=== PATIENT | male | born 1945 | race Caucasian/White ===

== ENCOUNTER 2016-06-30 11:31 | Day surgery (SDC) | payer OTHER, MEDICARE ==
[~2016-06-30] VITALS: Ht 177.8 cm; Wt 97.8 kg
[2016-06-30] VITALS (12 sets, daily range): BP systolic 78–126; BP diastolic 41–59; PULSE 73–92; RESP 18–45
[2016-06-30] MEDS ORDERED: CEFAZOLIN 1 GM/50 ML (PMX) 0 ML IVPB ONE (15:03)
[2016-06-30] MEDS ORDERED: FENTAnyl 50 MCG/ML VIAL ONE (15:31)
[2016-06-30] MEDS ORDERED: ETOMIDATE 20 MG INJ ONE (15:31)
[2016-06-30] MEDS ORDERED: EPHEDrine SULFATE 50 MG/5 ML SYG ONE (15:37)
[2016-06-30] MEDS ORDERED: PHENYLephrine (100 MCG/ML) 5ML SYG ONE (15:46)
[2016-06-30] MEDS ORDERED: CIPROFLOXACIN 400MG/D5W 200 ML ONE (15:49)
--- NOTE | 2016-06-30 18:43 | GILP ---
DATE OF PROCEDURE: 06/30/2016 PERCUTANEOUS ENDOSCOPIC GASTROSTOMY INDICATION: A 71-year-old male undergoing this procedure for poor oral nutrition and dysphagia. He had a G-tube which had come out spontaneously, and the radiologist could not put in a new G-tube, s o the patient is undergoing this procedure. The patient is undergoing endoscopic placement of G-tub e. The risk of the procedure, related and unrelated complications, anesthetic risks, alternatives discu ssed, and informed consent was obtained. DESCRIPTION OF PROCEDURE: The patient was brought to the GI lab, sedated by Dr. Correa. After obtai nelly sedation, scope was passed with much ease into esophagus. The internal stoma identified which was completely obliterated. There were 2 dolly seen surrounding the stoma, so I do not know wheth er it was a surgical G-tube or radiological G-tube. Attempt was made to pass the guidewire through the external stoma which was also completely obliterated. Since no air was leaking out through the internal stoma, it was definitely closed, so by transillumination and digital palpation technique, w e chose a different site. The site was sterilized with chlorhexidine solution, 2% Xylocaine instill ed, and small incision was made. Through that incision, trocar and stylus passed into the stomach. Stylet was removed through the hollow tip of the catheter. Insertion wire was passed, and the enti re procedure was completed by modified Ponsky technique. The patient was rescoped and the position of the internal bumper confirmed. External bumper secured. Tolerated the procedure very well. IMPRESSION: Successful placement of G-tube done. PLAN: Resume feeding in a.m. Until then, the patient will be n.p.o. and abdominal binder all the t maría. Dictated By: JARRELL KELLY/ANGELA Conf#: [id number] DID#: [id number] CC: DANIEL LUGO DO;*EndCC*
== END 2016-06-30 17:40 | disposition home or self-care (01) ==
LOC: GIL 11:31
PROVIDERS: ATTEND Internal Medicine Gastroenterology
DX: R13.10 Dysphagia, unspecified (principal); I10 Essential (primary) hypertension; E11.9 Type 2 diabetes mellitus without complications; I25.10 Atherosclerotic heart disease of native coronary artery without angina pectoris
CPT/HCPCS: 43246; J0744; J2370; J0690; J3010

== ENCOUNTER 2016-07-02 08:05 | Emergency (ER) | payer MEDICARE, OTHER ==
[~2016-07-02] VITALS: Ht 180.3 cm; Wt 118.2 kg
[2016-07-02 08:28] VITALS: Ht 180.3 cm; Wt 118.2 kg
[2016-07-02] MEDS ORDERED: SODIUM CHLORIDE 0.9% 1L BAG IV* STA (08:28)
[2016-07-02] MEDS ORDERED: NORepinephrine 8MG/250 ML (PMX 250 ML IV STA ×2 (08:28→20:45)
[2016-07-02] MEDS ORDERED: VANCOMYCIN 1 GM (PMX) 250 ML IVPB ONE (08:30)
[2016-07-02] MEDS ORDERED: LEVOFLOXACIN 750MG/D5W (PMX) 150 ML IVPB ONE (08:30)
--- NOTE | 2016-07-02 08:41 | ERA ---
ER Documentation Chief Complaint Date/Time DATE: 07/02/16 TIME: 08:41 Chief Complaint TRANSFER FROM [facility] 3RD FLOOR DUE TO HYPOTENSION HPI Patient is unable to provide any history due to cognitive impairment and clinical condition. History is obtained entirely from transferring nurses and review of previous records. 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 Patient was in his usual state of health until 04/17/2016 when he presented to the [facility] with shortness of breath. He was found to be septic secondary to community-acquired pneumonia. Required intubation, mechanical ventilation and subsequent tracheostomy was performed. Patient was stable until this morning when he had an episode of vomiting and since then has been hypotensive with systolic blood pressures in the 50s-60s. PMD, Dr. Gutierrez was notified and requested the patient be transferred to the intensive care unit but no beds are available. ROS All systems reviewed and are negative except as per history of present illness. Medications Home Meds Reported Medications Metoclopramide HCl (Metoclopramide HCl) 10 Mg/2 Ml Syringe, 10 MG IJ Q6H Y for PRN 07/02/16 Dextrose (Glucose) 15 Gm/60 Ml Liquid, 15 GM GTB Q15MIN 07/02/16 Glucagon HCl (Glucagon HCl) 1 Mg Vial, 1 MG IJ Q15MIN Y for PRN, VIAL 07/02/16 Belt-3 Fatty Acids/Fish Oil (Fish Oil 1,000 mg Capsule) 1 Each Capsule, 1 EACH GTB BID, CAP 07/02/16 Famotidine* (Famotidine*) 20 Mg Tablet, 20 MG GTB BID, #60 TAB 07/02/16 Docusate Sodium* (Docusate Sodium*) 100 Mg Capsule, 100 MG GTB BID, #60 CAP 07/02/16 Ciprofloxacin Hcl* (Ciprofloxacin Hcl*) 500 Mg Tablet, 500 MG GTB BID, #14 TAB 07/02/16 Clonidine Hcl* (Clonidine Hcl*) 0.1 Mg Tab, 0.2 MG PO Q4H, TAB 07/02/16 Cholecalciferol* (Vitamin D3*) 1,000 Unit Tablet, 2000 UNIT GTB DAILY, TAB 07/02/16 Carvedilol* (Carvedilol*) 3.125 Mg Tablet, 3.125 MG GTB BID, #60 TAB 07/02/16 Famotidine/Ca Carb/Mag Hydrox (TUMS DUAL ACTION TABLET CHEW) 1 Each Tab.chew, 1000 EACH GTB Q4H Y for PRN, TAB.CHEW 07/02/16 Atorvastatin* (Atorvastatin*) 40 Mg Tablet, 40 MG GTB DAILY, #30 TAB 07/02/16 Aspirin* (Aspirin* Chew) 81 Mg Tab.chew, 81 MG GTB DAILY, TAB.CHEW 07/02/16 Ascorbic Acid* (Vitamin C*) 500 Mg Capsule.sa, 500 MG GTB BID, CAP 07/02/16 Amiodarone Hcl* (Amiodarone Hcl*) 200 Mg Tablet, 200 MG GTB DAILY, #30 TAB 07/02/16 Ipratropium-Albuterol (Ipratropium-Albuterol) 0.5-3 Mg/3 Ml Ampul.neb, 3 ML INHALATION Q6, #30 VIAL 07/02/16 Acetaminophen* (Acetaminophen* Susp) 325 Mg/10.15 Ml Solution, 650 MG GTB Q4H Y for PAIN OR TEMP ABOVE 38C, ML 07/02/16 Trazodone Hcl* (Trazodone Hcl*) 50 Mg Tablet, 25 MG GTB QHS, #30 TAB 07/02/16 Tolterodine Tartrate* (Tolterodine Tartrate*) 2 Mg Tablet, 2 MG GTB QHS, #60 TAB 07/02/16 Tamsulosin Hcl* (Tamsulosin Hcl*) 0.4 Mg Cap.er.24h, 0.4 MG GTB DAILY, CAP 07/02/16 Sucralfate* (Carafate*) 1 Gm/10 Ml Susp, 1 GM GTB AC MEALS AND BEDTIME, EA 07/02/16 Quetiapine Fumarate* (Quetiapine Fumarate*) 25 Mg Tablet, 12.5 MG PO BID, TAB 07/02/16 Polyethylene Glycol* (Miralax*) 17 Gm Powd.pack, 17 GM GTB DAILY Y for PRN, #30 PACKET 07/02/16 Ondansetron Hcl* (Ondansetron Hcl* Inj) 4 Mg/2 Ml Vial, 4 MG IV Q6H, VIAL 07/02/16 Nystatin (Nystatin) 100,000 Unit/1 Ml Oral.susp, 5 ML PO TID, #60 ML 07/02/16 Magnesium Hydroxide* (Milk Of Magnesia*) 400 Mg/5 Ml Oral.susp, 30 ML PO QHS, ML 07/02/16 Lorazepam* (Lorazepam*) 0.5 Mg Tablet, 0.5 MG PO Q3H Y for ANXIETY, TAB 07/02/16 Lactulose* (Lactulose*) 20 Gm/30 Ml Solution, 20 GM GTB DAILY Y for PRN, ML 07/02/16 Lactobacillus Acidophilus* (Lactinex*) 1 Tab Chew, 1 TAB GTB TID, TAB 07/02/16 Insulin Glargine* (Lantus*) 100 Unit/Ml Soln, 8 UNIT SC QAM, #1 VIAL 07/02/16 Insulin Aspart* (Novolog Insulin Pen*) 100 Unit/Ml Soln, 0 SC .SLIDING SCALE AC , EA 0-120=0, 121-150=0, 151-200=1 UNITS, 201-250=2 UNITS, 251-300=3 UNITS, 301-350=4 UNITS, 351-400=5 UNITS CALL PROVIDER IF BS ABOVE 400=6 UNITS [id number]. 07/02/16 Hydromorphone Hcl* (Dilaudid* Inj) 1 Mg/Ml Soln, 0.25 MG IV Q2H Y for PAIN, AMP 07/02/16 Hydrocodone/Acetaminophen ([place] 5-325 Tablet) 1 Each Tablet, 2 EACH GTB Q4H Y for PRN, TAB 07/02/16 Allergies Allergies: Coded Allergies: cephalexin (Unverified Allergy, Unknown, 07/02/16) gentamicin (Unverified Allergy, Unknown, 07/02/16) PMhx/Soc Reviewed in chart. As per HPI. History of Surgery: Yes (IVC FILTER, RENAL TRANSPLANT, GTUBE) Anesthesia Reaction: No Hx Neurological Disorder: No Hx Respiratory Disorders: Yes (RESP FAILURE) Hx Cardiac Disorders: Yes (HTN, CAD, HX AFIB) Hx Psychiatric Problems: No Hx Miscellaneous Medical Probl: Yes (BUE DVT.WEEPING/EDEMA OF BUE/BLE) Hx Alcohol Use: No Hx Substance Use: No Hx Tobacco Use: No Smoking Status: Never smoker FmHx No stroke or cancer. Not relevant to presenting complaint Physical Exam Vitals Vital Signs Date Time Temp Pulse Resp B/P Pulse Ox O2 Delivery O2 Flow Rate FiO2 07/02/16 13:29 97.0 70 24 78/17 100 07/02/16 12:29 97.0 72 24 101/56 100 07/02/16 11:29 97.0 74 24 96/43 100 07/02/16 10:35 77 24 100 60 07/02/16 10:29 96.4 76 27 74/37 100 07/02/16 09:30 96.4 74 27 66/40 100 07/02/16 08:30 84 27 100 100 07/02/16 08:28 96.4 87 18 55/15 100 Physical Exam Const: Elderly, ill-appearing in severe distress. Head: Atraumatic Eyes: Normal Conjunctiva ENT: Normal External Ears, Nose and Mouth. Mucous membranes are dry Neck: Nontender. No meningismus. JVD. Tracheostomy site clean without erythema, induration or drainage Resp: Decreased breath sounds bilaterally with crackles throughout both lung edwards. No wheezing. Cardio: Regular rate and rhythm, no murmurs Abd: Soft, obese, distended, nontender. No rebound or guarding. PEG site clean without erythema, induration or drainage. Skin: Sacral decubitus with wound VAC in place. No rash. Back: No midline or flank tenderness Ext: 4+ edema, hyperpigmentation and erythema of the right upper extremity. 2+ edema of the left upper extremity. 2+ pitting edema of the lower extremities extending up to the scrotum. Neur: Unresponsive. Physical exam is truncated due to the constraints imposed by the patient's clinical condition Result Diagram: 07/02/1692907/02/1630 Results 24 hrs Laboratory Tests Test 07/02/16 08:28 07/02/16 08:30 07/02/16 09:30 07/02/16 10:00 Blood Gas Specimen Source Blood arterial Arterial Blood Date Drawn 07/02/2016 9:04:54 AM Arterial Blood pH (Temp corrected) 7.296 Arterial Blood pCO2 (Temp correct) 33.4mmhg Arterial Blood pO2 (Temp corrected) 335.5mmHG Arterial Blood HCO3 15.9mmol/L Arterial Blood Base Excess -9.7mmol/L Arterial Blood Oxygen Saturation 99.2mmHG Misael Test ACCEPTAB Arterial Blood Gas Puncture Site Left Radial Arterial Blood Carboxyhemoglobin 0.3% Arterial Blood Methemoglobin 0.6% Blood Gas A-a O2 Differential 344.1mmHg Oxyhemoglobin Percent 98.3% Total Hemoglobin 8.2g/dl Blood Gas Temperature 37.0C Blood Gas Respiration Rate 24.0 Blood Gas Actual Respiration Rate 24 Blood Gas Modality VENT - AC FiO2 100.0% Blood Gas Tidal Volume 500.0mL Blood Gas Low PEEP Setting 0cmH2O Blood Gas Critical Value Read Back Blood Gas Notified Whom Maggie Blood Gas Notified Time 07/02/2016 9:12:34 AM Lactic Acid Level 4.8mmol/L 8.7mmol/L White Blood Count 3.210^3/ul Red Blood Count 2.6810^6/ul Hemoglobin 7.6g/dl Hematocrit 26.7% Mean Corpuscular Volume 99.6fl Mean Corpuscular Hemoglobin 28.4pg Mean Corpuscular Hemoglobin Concent 28.5g/dl Red Cell Distribution Width 20.1% Platelet Count 10^3/UL Mean Platelet Volume 11.8fl Neutrophils % 59.0% Band Neutrophils % 16.0% Lymphocytes % 12.0% Reactive Lymphocytes % 2.0% Monocytes % 3.0% Eosinophils % % Metamyelocytes % 8.0% Nucleated Red Blood Cells % 8.0/100WBC Neutrophils # 1.910^3/ul Lymphocytes # 0.410^3/ul Monocytes # 0.110^3/ul Eosinophils # 10^3/ul Metamyelocytes # 0.3 Platelet Estimate Clumped Platelets MANY Hypochromasia FEW Sodium Level 143mmol/L Potassium Level 3.9mmol/L Chloride Level 114mmol/L Carbon Dioxide Level 20mmol/L Anion Gap 13 Blood Urea Nitrogen 23mg/dl Creatinine 2.39mg/dl Glucose Level 89mg/dl Calcium Level 7.3mg/dl Total Bilirubin 0.1mg/dl Direct Bilirubin 0.00mg/dl Indirect Bilirubin 0.1mg/dl Aspartate Amino Transf (AST/SGOT) 77IU/L Alanine Aminotransferase (ALT/SGPT) 41IU/L Alkaline Phosphatase 155IU/L Troponin I 0.030ng/ml Total Protein 3.9g/dl Albumin 1.8g/dl Globulin 2.10g/dl Albumin/Globulin Ratio 0.85 Current Medications Medications (Trade) Dose Ordered Sig/Moni Route PRN Reason Start Time Stop Time Status Last Admin Dose Admin Sodium Chloride 3660 ml 3,660 ml BOLUS OVER 2 HOURS STAT IV* 07/02/16 08:28 07/02/16 08:32 DC 07/02/16 08:39 Norepinephrine 250 ml @ 7.5 mls/hr ONCE STAT IV 07/02/16 08:28 07/03/16 17:47 07/02/16 08:28 Vancomycin HCl 250 ml @ 125 mls/hr ONCE ONCE IVPB 07/02/16 08:30 07/02/16 10:29 DC 07/02/16 12:00 Levofloxacin/ Dextrose (Levaquin 750 Mg/ D5W 150 ml (Pmx)) 150 ml @ 100 mls/hr ONCE ONCE IVPB 07/02/16 08:30 07/02/16 09:59 DC 07/02/16 09:45 Lidocaine (Xylocaine 1% (Mpf)) 5 ml ONCE ONCE SC 07/02/16 09:30 07/02/16 09:31 DC Hydrocortisone (Solu-Cortef) 125 mg ONCE ONCE IV 07/02/16 09:30 07/02/16 09:31 DC 07/02/16 10:21 Acetaminophen (Tylenol Liquid) 650 mg Q4H PRN GTB PAIN OR TEMP ABOVE 38C 07/02/16 13:00 Amiodarone HCl (Cordarone) 200 mg DAILY GTB 07/03/16 09:00 UNV Ascorbic Acid (Vitamin C) 500 mg BID GTB 07/02/16 21:00 UNV Aspirin (Aspirin) 81 mg DAILY GTB 07/03/16 09:00 UNV Atorvastatin Calcium (Lipitor) 40 mg DAILY GTB 07/03/16 09:00 UNV Carvedilol (Coreg) 3.125 mg BID GTB 07/02/16 21:00 UNV Cholecalciferol (Vitamin D) 2,000 unit DAILY GTB 07/03/16 09:00 UNV Insulin Glargine (Lantus) 8 unit QAM SC 07/03/16 09:00 UNV Albuterol/ Ipratropium (Duoneb) 3 ml Q6 NEB 07/02/16 18:00 UNV Lactobacillus Acidoph/Bulgaricus (Floranex) 1 tab TID GTB 07/02/16 13:00 UNV Magnesium Hydroxide (Milk Of Mag) 30 ml QHS PO 07/02/16 21:00 Nystatin (Nystatin Susp) 500,000 units TID PO 07/02/16 13:00 UNV Ondansetron HCl (Zofran Inj) 4 mg Q6H IV 07/02/16 13:00 Polyethylene Glycol (Miralax) 17 gm DAILY PRN GTB PRN 07/02/16 13:00 Sucralfate (Carafate Susp) 1 gm AC MEALS AND BEDTIME GTB 07/02/16 17:30 UNV Tamsulosin HCl (Flomax) 0.4 mg DAILY PO 07/03/16 09:00 UNV Tolterodine Tartrate (Detrol) 2 mg QHS GTB 07/02/16 21:00 UNV Trazodone HCl (Desyrel) 25 mg QHS GTB 07/02/16 21:00 UNV Miscellaneous Information 15 gm Q15MIN GTB 07/02/16 13:00 UNV Miscellaneous Information 1,000 each Q4H PRN GTB PRN 07/02/16 13:00 UNV Miscellaneous Information 1 mg Q15MIN PRN IJ PRN 07/02/16 13:00 UNV Miscellaneous Information 10 mg Q6H PRN IJ PRN 07/02/16 13:00 UNV Miscellaneous Information 1 each BID GTB 07/02/16 21:00 UNV Vancomycin HCl VANCOMYCIN PER PHARMACY PER PROTOCOL XX 07/02/16 13:00 UNV Levofloxacin/ Dextrose (Levaquin 750 Mg/ D5W 150 ml (Pmx)) 150 ml @ 100 mls/hr DAILY ONCE IVPB 07/03/16 09:00 07/03/16 10:29 UNV Hydrocortisone 100 mg 100 mg Q8 IV 07/02/16 14:00 UNV Sodium Chloride (NS) 1,000 ml @ 100 mls/hr Q10H IV 07/02/16 13:00 EKG: TIME: 08:59. Sinus rhythm with occasional premature atrial complexes. Left anterior hemiblock. Nonspecific ST-T wave changes. No acute ST segment elevation or depression. EP Interpretation: Abnormal EKG. IMAGING: PROCEDURE: XR Chest. CLINICAL INDICATION: Possible sepsis. TECHNIQUE: PA and Lateral views of the chest were obtained. COMPARISON: Chest x-ray 06/09/2016 08:00 a.m. FINDINGS: The soft tissues are normal. There are degenerative osteophytes in the thoracic spine. Tracheostomy tube is identified at T3. The left ventricle is enlarged. The cardiomediastinal silhouette and hilar structures are normal. The pulmonary vasculature is increased. The right diaphragm is elevated. There are vascular calcifications and ectasia of the thoracic aorta. There is atelectasis in the right lower lobe. There are vague infiltrates in the left lower lobe which are unchanged. The small right pleural effusion is suspected. The left costophrenic angle is normal. IMPRESSION: 1. Cardiomegaly with mild pulmonary venous obstruction. 2. Right lower lobe atelectasis with elevation of the right diaphragm. 3. A left lower lobe infiltrate which may be the result of pneumonia or asymmetric pulmonary edema. 4. Satisfactory positioning of the tracheostomy tube at T3-4. 5. Interval removal of the central venous catheter entering from a right internal jugular approach with no evidence of a pneumothorax. 6. Bilateral apical pleural scarring. 7. Spondylosis of the thoracic spine. RPTAT:AAJJ Physician Hal Date Time Electronically viewed and signed by Physician Hal on 07/02/2016 09:28 JM/ Procedures/MDM DOCUMENTS REVIEWED: ED nurse, prior records from [facility] and [facility] ED and hospital records MEDICAL DECISION MAKIN-year-old male with a history of hypertension, end- stage renal disease status post renal allograft, DVT status post IVC filter, pulmonary embolism, [place]ain[place] cell tumor, Alport syndrome, hypothyroidism, coronary artery disease status post PCI, adrenal insufficiency, upper GI bleeding, sacral decubitus, pneumonia, respiratory failure status post tracheostomy, vent dependent brought to the ED on his hospital bed from [facility] for evaluation of hypotension. Patient presents with septic shock likely due to aspiration pneumonia although he has multiple other potential sources including sacral decubitus. Patient's infectious symptoms have not stabilized and continues to be hypotensive despite IV fluids and Solu- Cortef 125 mg IV, requiring vasopressors. Patient is at risk of rapid decompensation. The patient will be admitted to the intensive care unit for hydration, antibiotic therapy, vasopressor support and infectious source control. Severe Sepsis criteria: Infectious source: Pneumonia End organ damage indicated by: Hypotension Lactate > 2.0 mmol/L Hypotension (SBP < 90 or >40 mmHG drop or MAP < 65) Acute Resp Failure (sat < 92% w/o oxygen) Ice Hockey Coach > 2.0 INR > 1.5 Plt < 100 Bili > 2 Sepsis Management: Time of recognition of severe sepsis/septic shock: 09:00 Within 3 hours of recognition: Blood cultures x 2 before broad-spectrum antibiotics: Yes 30 ml/kg NS bolus Completed Initial lactate 4.8 Repeat lactate 8.7 Septic Shock Assessment: Any lactic acid > 4.0 yes Persistent hypotension (SBP < 90 or 40 mmHg drop, MAP < 65) despite 30 mL/kg IV fluid bolus yes Volume Re-assessment for Septic Shock (post 30 ml/kg bolus @ 12:29 time): Temp 97, BP 101/56, HR 72, RR 24, Pox 100 Heart regular rate & rhythm Lungs diminished at the bases with rales Skin Warm & dry Cap Refill less than 2 seconds Peripheral pulses radially present Persistent Hypotension Treatment: Comfort care no Hypotension caused by: pt. baseline, med-induced, erroneous value, condition other than infection no Refusal by patient/decision maker for: Chest compressions or heroic interventions Central line left upper extremity PICC line Vasopressor started Levophed I considered further perfusion assessment with CVP measurement, SCVO2, bedside ultrasound volume assessment, passive leg raise, trial of further fluid bolus and proceeded with additional fluid bolus. Accepting Care Team Current data and ongoing care discussed. Time: 08:50 Admitting Physician: Brenda Critical Care Time: 40 minutes Treatments/Evaluations: Close monitoring and treatment of unstable vital signs, cardiorespiratory, and neurologic status, while maintaining tight balance of fluid, respiratory, and cardiac interventions. This includes the administration of emergency fluid management while maintaining close respiratory support as well as the provision of immediate and broad-spectrum antibiotic therapy, while performing a simultaneous assessment for possible sources in order to direct targeted therapy. This time includes discussing the case with the patient and the patient's family. This time also includes the consideration for invasive and chemical support to prevent cardiopulmonary collapse. This time does not include all procedures stated elsewhere in this record. This time also includes reviewing old records, labs and radiological studies. This time includes examining and re-examining the patient. Additionally, this time also includes arranging care with admitting and consulting physicians. Counseled daughter who is at the bedside and son who is a house furnishings supervisor in [place] via telephone regarding diagnosis, diagnostic results, prognosis and plan for admission. CALLS/CONSULTS: Time 08:45, Dr. Oneill, Recommends admission to ICU. PATIENT CARE TRANSITIONED: Time: 08:45, Dr. Gutierrez. Departure Diagnosis: Primary Impression: Septic shock Additional Impressions: Pneumonia Qualified Code: J69.0 - Aspiration pneumonia, unspecified aspiration pneumonia type, unspecified laterality, unspecified part of lung Acute on chronic renal failure History of renal transplant Hypotension Qualified Code: I95.9 - Hypotension, unspecified hypotension type Adrenal insufficiency Condition: Critical OTTO SMITH MD Jul 02, 2016 08:41
[2016-07-02 09:12] LABS: AADO2 Arterial 344.1 mmHg (7.0-24.0); Allen Test ACCEPTAB; Arterial Base Excess -9.7 mmol/L (-3.0-3); Arterial COHb 0.3 % (0.0-3.0); Arterial Fraction of Oxyhgb 98.3 % (93.0-99.0); Arterial HCO3 15.9 mmol/L (22.0-26.0); Arterial MetHb 0.6 % (0.0-1.5); Arterial Total Hemglobin 8.2 g/dl (12.0-18.0); Blood Gas Low PEEP Setting 0 cmH2O; MODE VENT - AC
--- NOTE | 2016-07-02 09:28 | RADRPT ---
PROCEDURE: XR Chest. CLINICAL INDICATION: Possible sepsis. TECHNIQUE: PA and Lateral views of the chest were obtained. COMPARISON: Chest x-ray 06/09/2016 08:00 a.m. FINDINGS: The soft tissues are normal. There are degenerative osteophytes in the thoracic spine. Tracheostom y tube is identified at T3. The left ventricle is enlarged. The cardiomediastinal silhouette and h ilar structures are normal. The pulmonary vasculature is increased. The right diaphragm is elevated . There are vascular calcifications and ectasia of the thoracic aorta. There is atelectasis in the r ight lower lobe. There are vague infiltrates in the left lower lobe which are unchanged. The small right pleural effusion is suspected. The left costophrenic angle is normal. IMPRESSION: 1. Cardiomegaly with mild pulmonary venous obstruction. 2. Right lower lobe atelectasis with elevation of the right diaphragm. 3. A left lower lobe infiltrate which may be the result of pneumonia or asymmetric pulmonary edema. 4. Satisfactory positioning of the tracheostomy tube at T3-4. 5. Interval removal of the central venous catheter entering from a right internal jugular approach with no evidence of a pneumothorax. 6. Bilateral apical pleural scarring. 7. Spondylosis of the thoracic spine. RPTAT:AAJJ Physician Hal Date Time Electronically viewed and signed by Physician Hal on 07/02/2016 09:28 SOCORRO/
[2016-07-02] MEDS ORDERED: LIDOCAINE 1% (MPF) 5 ML VIAL SC ONE ×2 (09:30→15:00)
[2016-07-02] MEDS ORDERED: HYDROCORTISONE 250 MG INJ IV ONE (09:30)
[2016-07-02 09:44] LABS: ADD SCAN DIFF NO
[2016-07-02 09:48] LABS: ABNORMAL IP MESSAGE 1; HEMATOCRIT 26.7 % (42.0-52.0); HEMOGLOBIN 7.6 g/dl (14.0-18.0); MEAN CORPUSCULAR HEMOGLOBIN 28.4 pg (29.0-33.0); MEAN CORPUSCULAR HGB CONC 28.5 g/dl (32.0-37.0); MEAN CORPUSCULAR VOLUME 99.6 fl (82.0-101.0); MEAN PLATELET VOLUME 11.8 fl (7.4-10.4); RED BLOOD COUNT 2.68 10^6/ul (4.70-6.10); RED CELL DISTRIBUTION WIDTH 20.1 % (11.5-14.5); WHITE BLOOD COUNT 3.2 10^3/ul (4.8-10.8)
[2016-07-02 10:07] LABS: ALBUMIN 1.8 g/dl (3.3-4.9); ALBUMIN/GLOBULIN RATIO 0.85; BILIRUBIN,INDIRECT 0.1 mg/dl (0-1.1); BILIRUBIN,TOTAL 0.1 mg/dl (0.2-1.3); CALCIUM 7.3 mg/dl (8.4-10.2); CREATININE 2.39 mg/dl (0.61-1.24); POTASSIUM 3.9 mmol/L (3.5-5.1); TOTAL PROTEIN 3.9 g/dl (6.1-8.1)
[2016-07-02 10:18] LABS: TROPONIN-I 0.03 ng/ml (0.00-0.12)
[2016-07-02] MEDS ORDERED: HYDR-906 GTB (10:40)
[2016-07-02] MEDS ORDERED: DIL1I IV (10:42)
[2016-07-02] MEDS ORDERED: NOVO3I SC (10:48)
[2016-07-02] MEDS ORDERED: LANT3I SC (10:49)
[2016-07-02] MEDS ORDERED: LACTINEX GTB (10:50)
[2016-07-02] MEDS ORDERED: LACT20SO2 GTB (10:51)
[2016-07-02] MEDS ORDERED: LORA0.5T PO (10:52)
[2016-07-02] MEDS ORDERED: MAGN400O4 PO (10:52)
[2016-07-02] MEDS ORDERED: NYST1000 PO (10:56)
[2016-07-02] MEDS ORDERED: ONDA4VIA2 IV (10:57)
[2016-07-02] MEDS ORDERED: POLY17PO6 GTB (10:57)
[2016-07-02] MEDS ORDERED: QUET25TA33 PO (10:58)
[2016-07-02] MEDS ORDERED: CARAS GTB (10:59)
[2016-07-02] MEDS ORDERED: TAMS0.4C2 GTB (11:00)
[2016-07-02] MEDS ORDERED: TOLT2TAB5 GTB (11:01)
[2016-07-02] MEDS ORDERED: TRAZ50TA18 GTB (11:01)
[2016-07-02] MEDS ORDERED: ACET325S GTB (11:03)
[2016-07-02] MEDS ORDERED: IPRA3AMP INHALATION (11:04)
[2016-07-02] MEDS ORDERED: AMIO200T2 GTB (11:05)
[2016-07-02] MEDS ORDERED: ASCO500C7 GTB (11:06)
[2016-07-02] MEDS ORDERED: ASPI81TA3 GTB (11:06)
[2016-07-02] MEDS ORDERED: ATOR40TA68 GTB (11:07)
[2016-07-02] MEDS ORDERED: FAMO1TAB3 GTB (11:20)
[2016-07-02] MEDS ORDERED: CARV3.1260 GTB (11:20)
[2016-07-02] MEDS ORDERED: CHOL100062 GTB (11:21)
[2016-07-02] MEDS ORDERED: CLON-379 PO (11:24)
[2016-07-02] MEDS ORDERED: CIPR500T4 GTB (11:30)
[2016-07-02] MEDS ORDERED: DOCU-159 GTB (11:31)
[2016-07-02] MEDS ORDERED: FAMO20TA18 GTB (11:31)
[2016-07-02] MEDS ORDERED: OMEG-135 GTB (11:32)
[2016-07-02] MEDS ORDERED: GLUC1VIA6 IJ (11:33)
[2016-07-02] MEDS ORDERED: DEXT15LI43 GTB (11:35)
[2016-07-02] MEDS ORDERED: METO10DI2 IJ (11:39)
[2016-07-02 13:00] LABS: LYMPHOCYTES # 0.4 10^3/ul (0.8-2.9); MONOCYTE # 0.1 10^3/ul (0.3-0.9); NEUTROPHIL # 1.9 10^3/ul (1.6-7.5)
[2016-07-02] MEDS ORDERED: [UNRECOGNIZED DRUG - OTHER] GTB SCH (13:00)
[2016-07-02] MEDS: ONDANSETRON 4 MG INJ IV SCH ×2 (13:00→19:28)
[2016-07-02] MEDS ORDERED: POLYETHYLENE GLYCOL 17 GM PACKET GTB PRN (13:00)
[2016-07-02] MEDS ORDERED: ACETAMINOPHEN 650MG/20.3ML CUP GTB PRN (13:00)
[2016-07-02] MEDS ORDERED: SOD CHLORIDE 0.9% 1,000 ML IV SCH (13:00)
[2016-07-02] MEDS ORDERED: FAMOTIDINE GTB PRN (13:00)
[2016-07-02] MEDS ORDERED: MAG HYDROX GTB PRN (13:00)
[2016-07-02] MEDS ORDERED: NYSTATIN SUSP 100000 UNITS/ML 60 ML BTL PO SCH (13:00)
[2016-07-02] MEDS ORDERED: [UNRECOGNIZED DRUG - OTHER] GTB PRN (13:00)
[2016-07-02] MEDS ORDERED: VANCOMYCIN IV PER PHARMACY XX SCH (13:00)
[2016-07-02] MEDS ORDERED: DEXTROSE 15 GM GTB SCH (13:00)
[2016-07-02] MEDS ORDERED: GLUCAGON HCL 1 MG IJ PRN (13:00)
[2016-07-02] MEDS ORDERED: CA CARB GTB PRN (13:00)
[2016-07-02 13:02] LABS: HYPOCHROMASIA FEW
[2016-07-02 13:03] LABS: PLATELETS CLUMPS MANY
[2016-07-02] MEDS ORDERED: HYDROCORTISONE 100 MG INJ IV SCH (14:00)
--- NOTE | 2016-07-02 14:28 | HP ---
DATE OF ADMISSION: 07/02/2016 CHIEF COMPLAINT: Septic shock. HISTORY OF PRESENT ILLNESS: This is a 71-year-old male with past medical history of end-stage renal disease status post renal transplant in 1984 secondary to Alport syndrome, history of hypertension, history of deep venous thrombosis, status post inferior vena cava filter in 2013, history of PE, hi story of skin cancer, history of Opal cell tumor, status post right axillary surgery, radiation, h istory of hypothyroidism, history of coronary artery disease, status post PCI, history of adrenal in sufficiency, history of spinal stenosis who initially presented to [facility] from assisted living facility on 04/17/2016 with shortness of breath. The patient at that [facility] was found to be septic due to community-acquired pneumonia. The patient was admitted to intensiv e care unit. He had a long hospital course on sustained ventilation. The patient was eventually tr ached and pegged and transferred to [facility] for continued care. While at [place], the patient was being seen by under baster and infectious disease. The patient had a clinical decl ine in his condition as he started to develop acute kidney injury. The patient early in the morning then had an episode of emesis with apparent aspiration. The patient then became hypotensive with m inimal response. The patient was given IV hydration and transferred to intensive care unit. In the intensive care unit, the patient was placed on broad spectrum antibiotics and was placed on pressor support and has been given aggressive IV hydration. There have been no reports of hemoptysis, heme temesis, or hematochezia. PAST MEDICAL HISTORY: As stated above, history of hypertension, history of end-stage renal disease status post renal transplant, history of Alport syndrome, history of deep venous thrombosis, status post inferior vena cava filter, history of pulmonary embolus, history of skin cancer and history of [place] cell tumors, history of hypothyroidism disease, coronary disease, history of adrenal insuffic iency. PAST SURGICAL HISTORY: Status post kidney transplant from donor status post PCI to [facility] post lumbar laminectomy. History of pituitary excision. SOCIAL HISTORY: Does not drink, smoke or do drugs. FAMILY HISTORY: Noncontributory. ALLERGIES: PATIENT IS ALLERGIC TO GENTAMICIN and KEFLEX. MEDICATIONS: Reviewed and reconciled. REVIEW OF SYSTEMS: Unable to do adequate review of systems as patient is altered. Pertinent positi ves obtained by reviewing medical records, speaking to hospital staff, stated in HPI, otherwise nega tive. PHYSICAL EXAMINATION: VITAL SIGNS: Blood pressure is currently 100/72, respiration is 24, temperature 98.6, heart rate is 77. HEENT: Head is normocephalic. Pupils are reactive to light. NECK: Supple. HEART: Tachycardic. LUNGS: Show diminished breath sounds, positive crackles, rhonchi. ABDOMEN: Soft, nontender to palpation. Positive PEG. EXTREMITIES: Positive for edema in upper and lower extremity, positive lymphedema in the right uppe r extremity. The patient has hyperpigmentation of lower extremities. DERMATOLOGIC: No obvious rashes. NEUROLOGIC: Limited exam as the patient is obtunded. LABORATORY DATA: Shows a white count 3.2, hemoglobin 7.6, hematocrit 36.7, platelet count 75. Sodi um 143, potassium ____, chloride 114, BUN 23, creatinine 2.39, lactic acid 8.7, calcium 7.3, total b ilirubin 0.1. A pH 7.2, pCO2 of 33. IMAGING STUDIES: Chest x-ray shows right lower lobe atelectasis left lower lobe infiltrate with pos sible pneumonia or asymmetric edema bilateral apical scarring, spondylosis. ASSESSMENT AND PLAN: This is a 71-year-old male who presents with: 1. Aseptic shock, underlying etiology is likely from aspiration pneumonia, pneumonitis. The patien t is currently on pressor support and is receiving IV fluids on broad spectrum antibiotics. 2. Check blood cultures, check urine cultures. Check procalcitonin level. Continue current antibi otic regimen will place an ID consult for Infectious Disease for evaluation. Will continue pressor support and IV fluids and monitor closely. 3. Oligoanuric acute kidney injury on top of chronic kidney disease with a previous baseline creati nine of 0.7 mg/dL. Etiology of acute kidney injury is likely secondary to acute tubular necrosis du e to sepsis, ischemic hypoperfusion/shock. The possibility of an acute rejection is less likely giv en the patient's clinical presentation; however, this will always need to be considered in the setti ng of renal transplant. Plan at this point is to check a UA with microanalysis. Will check urine e lectrolytes. We will check a stat renal ultrasound to rule out obstruction. Would continue treatin g underlying sepsis with IV antibiotics. Will continue pressor support, maintain MAP of 65. Contin ue IV hydration. Will monitor closely. There is no immediate need for renal replacement therapy at this time. 4. Metabolic acidosis, anion gap, etiology secondary to septic shock, lactic acidosis and acute kid kimberlee injury. The patient's pH 7.29, pCO2 of 33. At this point, we will continue to monitor. No nee d for bicarbonate therapy. 5. Ventilator dependent respiratory failure. Vent settings have been reviewed. ABG reviewed. Con tinue to monitor. Follow up with Pulmonary. 6. Anemia. Etiology is likely of chronic disease. Monitor H and H levels, transfuse PRBCs as need ed. 7. Dysphagia, suspect will hold tube feeding. 8. History of end-stage renal disease status post cadaveric renal transplant. The patient currentl y has acute kidney injury as stated above. The patient is on Sirolimus. Will check a level and adj ust dose as needed. 9. Right upper extremity lymphedema. Continue to monitor. 10. Dermatitis. Continue to monitor. 11. History of coronary artery disease status post PCI. Continue medical management. We will plac e a cardiology consultation for evaluation. 12. Acute encephalopathy. Etiology is likely toxic metabolic. Continue to monitor. 13. History of paroxysmal atrial fibrillation, currently in sinus rhythm. Continue current medical management. Continue amiodarone. 14. History of adrenal insufficiency as the patient is in shock, will give the patient stress hydro cortisone 100 mg IV q.8h. 15. Decubitus wound. Continue wound care. 16. Diabetes. Continue current insulin regimen. 17. Volume overload with noted lower extremity edema. The patient is currently in shock, will defe r any diuretic therapy and continue IV hydration. 18. Previous history of gastrointestinal bleed. Continue to monitor H and H levels closely. 19. History of deep venous thrombosis and pulmonary embolism. 20. Status post inferior vena cava filter. 21. History of Opal cell tumor. Please note, I discussed the case with the patient's family. The patient is a DNR. Dictated By: DANIEL PEPE/ANGELA Conf#: [id number] DID#: [id number]
[2016-07-02] MEDS ORDERED: GLUCOSE GEL 15 GRAM TUBE PO PRN ×2 (15:00)
[2016-07-02] MEDS ORDERED: GLUCAGON 1 MG INJ IM PRN (15:00)
[2016-07-02] MEDS ORDERED: DEXTROSE 50% 50 ML SYRINGE IV PRN ×2 (15:00)
[2016-07-02] MEDS ORDERED: DOPamine-D5W 1.6 MG/ML 250 ML IV SCH (15:00)
[2016-07-02] MEDS ORDERED: GLUCOSE GEL 15 GRAM TUBE BUCCAL PRN (15:00)
[2016-07-02] MEDS ORDERED: PHENYLephrine 20MG IN 250 ML 250 ML IV SCH (15:00)
[2016-07-02] MEDS ORDERED: METOCLOPRAMIDE 10 MG INJ IV PRN (15:30)
[2016-07-02] MEDS ORDERED: L ACIDOPHIL/B LACTIS/B LONGUM CAPSULE PO SCH (16:00)
--- NOTE | 2016-07-02 16:13 | RADRPT ---
PROCEDURE: XR Chest. CLINICAL INDICATION: Check PICC line catheter placement. TECHNIQUE: Single frontal view of the chest was obtained COMPARISON: Chest x-ray 06/09/2016. FINDINGS: The soft tissues are normal. There are degenerative osteophytes in the thoracic spine. There is a suboptimal inspiratory effort. The heart is enlarged. The cardiomediastinal silhouette and hilar s tructures are normal. The pulmonary vasculature is increased. There are vascular calcifications in the left sided aortic arch. There are bilateral worsening interstitial perihilar infiltrates. There is atelectasis in the right lower lobe adjacent to the diaphragm. There is a area of increased den sity projecting through the medial left heart border. A tracheostomy tube is well-positioned at T3. The costophrenic angles are poorly visualized. IMPRESSION: 1. The PICC line catheter is well positioned in the superior vena cava. 2. A central venous catheter entering from right internal jugular approach was removed over the int erval. 3. Cardiomegaly with bilateral mixed interstitial infiltrates and some more confluent alveolar infi ltrates in the upper lung edwards and right perihilar area. 4. Plate-like atelectasis in the right lower lobe with elevation of the right diaphragm. 5. Atherosclerotic vascular disease. 6. Rectangular shaped density projecting through the left heart border resulting in increased densi ty of unknown etiology. RPTAT:AAJJ Physician Hal Date Time Electronically viewed and signed by Ken Pennington Physician on 07/02/2016 16:12 SOCORRO/
[2016-07-02] MEDS ORDERED: ALBUMIN HUMAN 25% 100 ML IV SCH (16:30)
[2016-07-02] MEDS ORDERED: VANCOMYCIN 1 GM in NS 250 ML IVPB SCH (16:30)
[2016-07-02 16:34] LABS: INR 1.94; PROTIME 22.3 Sec (12.2-14.2); PT RATIO 1.7
[2016-07-02 16:36] LABS: ADD UMIC YES; URINE BLOOD (Dip) 1+ (NEGATIVE); URINE COLOR DK. YELLOW (YELLOW); URINE GLUCOSE (Dip) NEGATIVE (NEGATIVE); URINE KETONES (Dip) 15 (NEGATIVE); URINE LEUKOCYTE ESTERASE (Dip) 2+ (NEGATIVE); URINE NITRITE (Dip) POSITIVE (NEGATIVE); URINE TOTAL PROTEIN (Dip) 2+ (NEGATIVE); URINE UROBILINOGEN (Dip) 1.0 E.U./dL (0.1-1.0)
--- NOTE | 2016-07-02 16:43 | CONS ---
DATE OF ADMISSION: 07/02/2016 DATE OF CONSULTATION: 07/02/2016 PRIMARY PHYSICIAN: Dr. Gutierrez REASON FOR CONSULTATION: Respiratory failure and septic shock. HISTORY OF PRESENT ILLNESS: Briefly, this is a 71-year-old gentleman with multiple medical problems , most notably history of end-stage renal disease status post renal transplant in 1984 secondary to Alport's syndrome, history of hypertension, DVT, status post IVC filter placement, history of PE, hi story of [place] cell tumor, hypothyroidism, coronary artery disease status post PCI, adrenal insuffi ciency, and spinal stenosis who is status post a long hospitalization and sustained mechanical venti lation at an outside hospital, followed by eventual transfer to [facility] for [facility] of chronic vent-dependent respiratory failure. It appears that the patient has had worsening acute kidney injury and more recently earlier today was noted to have an acute episode of emesis wi th possible witnessed aspiration followed by hypotension and worsening hypoxemic respiratory failure , prompting transfer to [facility] while awaiting an ICU bed. PAST MEDICAL HISTORY: As noted above, also history of skin cancer. PAST SURGICAL HISTORY: Status post a cadaveric renal transplant in 1984, history of PCI to the RCA and history of lumbar thyroidectomy and pituitary excision. MEDICATIONS: Please see MAR. ALLERGIES: 1. GENTAMICIN. 2. KEFLEX. SOCIAL HISTORY: No tobacco, alcohol or illicit drug use. FAMILY HISTORY: Noncontributory. REVIEW OF SYSTEMS: Unable to obtain. PHYSICAL EXAMINATION: VITAL SIGNS: Currently blood pressure is 81/48 supported on pressors. Heart rate is 64, oxygen sat uration of 100% on 60% FIO2, temperature is 97.0. HEENT: Pupils are reactive to light. NECK: Supple. Tracheostomy site is clear. CARDIOVASCULAR: Regular rate and rhythm, S1 and S2. CHEST: Diminished breath sounds with some rhonchi heard bilaterally. ABDOMEN: Soft, nontender. PEG is in place. EXTREMITIES: Diffuse anasarca, particularly worse in the right upper extremity. LABORATORY DATA: WBC is 3.2, hemoglobin 7.6, platelets are for some reason not done due to being cl umped. ABG: pH is 7.30, pACO2 is 33, pO2 is 340, this is on 100%. Lactate is most recently 8.7. BUN is 23, creatinine is 2.39. IMAGING: Chest x-ray shows evidence of cardiomegaly, some left lower lobe subtle airspace disease a nd a left PICC line that appears in good place. IMPRESSION: 1. Septic shock, possibly due to an aspiration versus healthcare-associated pneumonia. Also cathet er-related bloodstream infection is another possibility. 2. Respiratory failure and now worsening hypoxemia on top of chronic respiratory failure. 3. Oliguric acute kidney injury in the setting of chronic kidney disease. This may represent a com ponent of acute tubular necrosis. 4. Lactic acidosis due to his septic shock. 5. Anemia. Relative leukopenia. 6. History of renal transplant. 7. Right upper extremity edema. 8. Encephalopathy, likely acute due to his underlying acute infectious processes. RECOMMENDATIONS: 1. IV resuscitation while following end organ tissue perfusion with serial lactates. 2. Vasopressor support to maintain mean arterial pressure greater than 65 mmHg. 3. Broad spectrum antibiotic coverage with plans to deescalate pending cultures. 4. Stress dose steroids in view of his history of adrenal insufficiency. 5. Will obtain a serum cortisol and TSH. 6. Will adjust vent settings with increasing respiratory rate to compensate for the metabolic acido sis. 7. DVT and GI prophylaxis. 8. We will maintain n.p.o. for the time being. Dictated By: NAYE PEÑA MD NK/NTS Conf#: [id number] DID#: [id number] CC: CARMELITA NUÑEZ MD; DANIEL GUTIERREZ DO;*EndCC*
[2016-07-02 16:47] LABS: PARTIAL THROMBOPLASTIN TIME 74.5 Sec (25.0-35.0)
[2016-07-02 16:54] LABS: URINE BILIRUBIN (Dip) NEGATIVE (NEGATIVE)
[2016-07-02 16:58] LABS: ICTOTEST NEGATIVE (NEGATIVE)
[2016-07-02 17:07] LABS: URINE RBCS NONE SEEN /HPF (0)
[2016-07-02 17:09] LABS: BACTERIA,URINE MANY
[2016-07-02] MEDS ORDERED: SUCRALFATE (100 MG/ML) 10ML CUP GTB SCH (17:30)
--- NOTE | 2016-07-02 17:59 | CONS ---
Date/Time of Note Date/Time of Note DATE: 07/02/16 TIME: 17:37 Assessment/Plan Assessment/Plan Chief Complaint/Hosp Course ID PROGRESS NOTE=> see full consult note dictation Dr. Bower => Pt has been followed by Dr. Bower ID team consultants at [facility]. CURRENT ABX: Vanco IV 07/02, Merrem, Levaquin s/p Cancidas, Primaxin 07/02/16 0930 07/02/16 0930 RECENT EVENTS * Patient was transferred from [facility] to [facility] ICU with septic shock requiring vasopressor support after witness aspiration event post emesis this am @ [facility]. Subsequently, he developed hypotension, worsening encephalopathy, with IMMANUEL. Patient has hx of cadaveric renal tx 1984 which has been functioning, he is NOT on HD. Now with concern progressive renal failure of the cadaveric kidney in setting of septic shock, in addition to need to broaden ABX empiric medications. * LABORATORY DATA: WBC is 3.2, hemoglobin 7.6, platelets are for some reason not done due to being clumped. ABG: pH is 7.30, pACO2 is 33, pO2 is 340, this is on 100%. Lactate is most recently 8.7. BUN is 23, creatinine is 2.39. * IMAGING: Chest x-ray shows evidence of cardiomegaly, some left lower lobe subtle airspace disease and a left PICC line that appears in good place. * New PICC line paced today 07/02/16, with removal of prior TLC. * Blood, sputum, urine cultures sent 07/03/15 and are pending * 07/01/16 URINE CULTURE Preliminary NO GROWTH AFTER 24 HOURS RECENT MICRO AT [facility] (-)MRSA NARES (+)VRE STOOL (+)Urine cx = Yeast 06/17/16 (+)PSAR sputum (+)PSAR wound cx (+)GLABRATA wound cx (-)C.Diff x2 REPEAT URINE 07/01/16 07/01/16 URINE CULTURE Preliminary NO GROWTH AFTER 24 HOURS PHYSICAL EXAMINATION: GENERAL: Overweight M, septic in ED, obtunded, pallor noted, (+) anasarca HEENT: AT, NC, anicteric, Oral membranes white coated tongue NECK: Supple, trach present secure to Vent CHEST: Equal chest rise bilaterally, (+)rhonchi (+)rales, no wheezing HEART: Pulse RRR ABDOMEN: Soft, obese, peg : ABD/Bilateral groin obese skin folds moist with erythematous yeast rash, skin maceration EXTREMITIES: Warm, massive generalized edema SKIN: Warm, back wound not assessed (see photos), left thigh open wound w/pink granulation tissue, erythema surrounding skin edges ID ASSESSMENT: 63 yo obese M w/MMP TNS [place]-> H ED this am with: 1. Sepsis w/shock requiring vasopressors + lactic acidosis, pancytopenia, acute encephalopathy after witness aspiration post emesis septic shock. * DDx Line Infx = Lines changed w/New PICC Placed in ED today 07/03/15 * DDx (+)Aspiration Pneumonitis post emesis 07/02/16 am * DDx recurrent UTI => FC changed in ED today 07/02/16 2. Aspiration HCAP per CXR findings 07/02/16 * Respiratory cx ordered 07/02/16 * Hx of (+)PSAR HCAP vs trach-colonization 06/23/16 3. Hypoxic/hypercapnic VDRF 4. IMMANUEL on CKD => s/p cadaveric renal Tx 1984 for Alport syndrome 5. Dysphagia -> New PEG placed 06/30/16 6. BPH w/suspected urinary retention, on alpha yuval-> Indwelling FC 7. s/p recent UTI Yeast 06/17/16 * 07/01/16 URINE CULTURE Preliminary NO GROWTH AFTER 24 HOURS 8. CV ISSUES: HTN, HLD, CAD-w/prior PCI-> RCA, diastolic HF STG I 9. Anasarca w/RUXT significant edema 10. Hx of pituitary & thyroid resection, remote 11. Hx of DVT/PE-> s/p IVC filter placement 12. Hx of Opal cell tumors 13. Acute anemia w/pancytopenia / on chronic anemia / ?Thrombocytopenia = clumped PLTs 14. Hx of adrenal insufficiency 15. Left anterior/medial upper thigh open wound w/cellulitis surrounding skin of open wound bed. 16. s/p sacral/coccygeal wound debridement * Wound cx WOUND CULTURE Final PSEUDOMONAS AERUGINOSA & SPIKE GLABRATA 17. Candidiasis: oral, skin folds (-)MRSA Nares (+)VRE Stool colonization INVASIVES: * TRACH, PEG (06/30/16), FC (07/02/16; PICC (07/02/16) ABX ALLERGIES: KEFLEX/GENT CURRENT ABX: TOTAL ABX DAY #1 =>Vanco IV 07/02, Merrem #1, Levaquin #1 s/p Cancidas, Primaxin ID RECOMMENDATIONS: => AVOID TOXIC RENAL MEDS 1. Repeat BCx, UA, Urine cx sent -> Order for respiratory cx today 2. PICC Line changed in ED today 3. FC changed today in ED 4. Continue Merrem + Levaquin for "Double PSAR Coverage" 5. DC VANCO IV -> IMMANUEL in setting sepsis in cadaveric kidney s/p tx 1984, now with decreased urine output 6. START TYGACIL => Renal safe will cover MRSA, VRE, CRE (does not cover PSAR) 7. Strict oral care w/Peridex followed by Nystatin Q6H = prevention VAP, thrush 8. Nystatin powder to ABD/groin folds Q12 + PRN [place] PATIENT/FAMILY EDUCATION COMPLETED TODAY Lengthy discussion earlier today with spouse who expresses understanding/ agreement/gratitude at bedside in ED along with ED nurse. * ABX plan of care including rationale for Tygacil for MRSA/VRE/CRE coverage in setting sepsis w/IMMANUEL, avoiding Zyvox due to acute pancytopenia, DC Vanco IV due to oliguric IMMANUEL of cadaveric renal Tx. * Multiple co-morbid conditions & medical treatment efforts reviewed, risks vs benefits ABX discussed, plan to continue aggressive ABX supportive care. . Problems: Consultation Date/Type/Reason Admit Date/Time Initial Consult Date Exam/Review of Systems Vital Signs Vitals Vital Signs Date Time Temp Pulse Resp B/P Pulse Ox O2 Delivery O2 Flow Rate FiO2 07/02/16 16:55 60 07/02/16 16:29 97.0 65 24 97/54 100 Results Result Diagram: 07/02/16 0930 07/02/16 0930 Results 24 hrs Laboratory Tests Test 07/02/16 08:28 07/02/16 08:30 07/02/16 09:30 07/02/16 10:00 Blood Gas Specimen Source Blood arterial Arterial Blood Date Drawn 07/02/2016 9:04:54 AM Arterial Blood pH (Temp corrected) 7.296 *L Arterial Blood pCO2 (Temp correct) 33.4 L Arterial Blood pO2 (Temp corrected) 335.5 H Arterial Blood HCO3 15.9 L Arterial Blood Base Excess -9.7 L Arterial Blood Oxygen Saturation 99.2 Misael Test ACCEPTAB Arterial Blood Gas Puncture Site Left Radial Arterial Blood Carboxyhemoglobin 0.3 Arterial Blood Methemoglobin 0.6 Blood Gas A-a O2 Differential 344.1 H Oxyhemoglobin Percent 98.3 Total Hemoglobin 8.2 L Blood Gas Temperature 37.0 Blood Gas Respiration Rate 24.0 Blood Gas Actual Respiration Rate 24 Blood Gas Modality VENT - AC FiO2 100.0 Blood Gas Tidal Volume 500.0 Blood Gas Low PEEP Setting 0 Blood Gas Critical Value Read Back Blood Gas Notified Whom Maggie Blood Gas Notified Time 07/02/2016 9:12:34 AM Lactic Acid Level 4.8 *H 8.7 *H White Blood Count 3.2 #L Red Blood Count 2.68 L Hemoglobin 7.6 L Hematocrit 26.7 L Mean Corpuscular Volume 99.6 Mean Corpuscular Hemoglobin 28.4 L Mean Corpuscular Hemoglobin Concent 28.5 L Red Cell Distribution Width 20.1 H Platelet Count Mean Platelet Volume 11.8 H Neutrophils % 59.0 Band Neutrophils % 16.0 H Lymphocytes % 12.0 L Reactive Lymphocytes % 2.0 Monocytes % 3.0 Eosinophils % Metamyelocytes % 8.0 H Nucleated Red Blood Cells % 8.0 H Neutrophils # 1.9 Lymphocytes # 0.4 L Monocytes # 0.1 L Eosinophils # Metamyelocytes # 0.3 Platelet Estimate Clumped Platelets MANY Hypochromasia FEW Sodium Level 143 Potassium Level 3.9 Chloride Level 114 H Carbon Dioxide Level 20 L Anion Gap 13 Blood Urea Nitrogen 23 H Creatinine 2.39 H Glucose Level 89 Calcium Level 7.3 L Total Bilirubin 0.1 L Direct Bilirubin 0.00 Indirect Bilirubin 0.1 Aspartate Amino Transf (AST/SGOT) 77 H Alanine Aminotransferase (ALT/SGPT) 41 Alkaline Phosphatase 155 H Troponin I 0.030 Total Protein 3.9 L Albumin 1.8 L Globulin 2.10 Albumin/Globulin Ratio 0.85 Test 07/02/16 16:10 Prothrombin Time 22.3 #H Prothrombin Time Ratio 1.7 INR International Normalized Ratio 1.94 Activated Partial Thromboplast Time 74.5 *H Urine Color DK. YELLOW Urine Clarity CLOUDY H Urine pH 5.0 Urine Specific [place] 1.025 Urine Ketones 15 Urine Nitrite POSITIVE H Urine Bilirubin NEGATIVE Urine Ictotest NEGATIVE Urine Urobilinogen 1.0 E.U./dL Urine Leukocyte Esterase 2+ H Urine Microscopic RBC NONE SEEN Urine Microscopic WBC >50 Urine Bacteria MANY Urine Yeast FEW Urine Hemoglobin 1+ H Urine Random Creatinine 373.83 H Urine Random Sodium 25 L Urine Glucose NEGATIVE Urine Total Protein 117.0 H Lactic Acid Level 8.7 *H Medications Medications Current Medications Acetaminophen (Tylenol Liquid) 650 mg Q4H PRN GTB PAIN OR TEMP ABOVE 38C; Start 07/02/16 at 13:00 Amiodarone HCl (Cordarone) 200 mg DAILY GTB ; Start 07/03/16 at 09:00 Ascorbic Acid (Vitamin C) 500 mg BID GTB ; Start 07/02/16 at 21:00 Aspirin (Aspirin) 81 mg DAILY GTB ; Start 07/03/16 at 09:00 Atorvastatin Calcium (Lipitor) 40 mg DAILY GTB ; Start 07/03/16 at 09:00 Carvedilol (Coreg) 3.125 mg BID GTB ; Start 07/02/16 at 21:00 Cholecalciferol (Vitamin D) 2,000 unit DAILY GTB ; Start 07/03/16 at 09:00 Insulin Glargine (Lantus) 8 unit QAM SC ; Start 07/03/16 at 09:00 Albuterol/ Ipratropium (Duoneb) 3 ml Q6 NEB ; Start 07/02/16 at 18:00 Lactobacillus Acidophilus (Florajen3 Capsule) 1 each TID PO ; Start 07/02/16 at 16:00 Magnesium Hydroxide (Milk Of Mag) 30 ml QHS PO ; Start 07/02/16 at 21:00 Nystatin (Nystatin Susp) 500,000 units TID PO ; Start 07/02/16 at 13:00 Ondansetron HCl (Zofran Inj) 4 mg Q6H IV Last administered on 07/02/16t 13:00; Admin Dose 4 MG; Start 07/02/16 at 13:00 Polyethylene Glycol (Miralax) 17 gm DAILY PRN GTB PRN; Start 07/02/16 at 13:00 Tamsulosin HCl (Flomax) 0.4 mg DAILY PO ; Start 07/03/16 at 09:00 Tolterodine Tartrate (Detrol) 2 mg QHS GTB ; Start 07/02/16 at 21:00 Trazodone HCl (Desyrel) 25 mg QHS GTB ; Start 07/02/16 at 21:00 Miscellaneous Information 1,000 each Q4H PRN GTB PRN; Start 07/02/16 at 13:00; Status UNV Metoclopramide HCl (Reglan) 5 mg Q6H PRN IV PRN; Start 07/02/16 at 15:30 Fish Oil 1000 mg 1,000 mg BID PO ; Start 07/02/16 at 21:00 Levofloxacin/ Dextrose (Levaquin 750 Mg/ D5W 150 ml (Pmx)) 150 ml @ 100 mls/hr Q48H IVPB ; Start 07/04/16 at 09:00 Hydrocortisone 100 mg 100 mg Q8 IV Last administered on 07/02/16 14:00; Admin Dose 100 MG; Start 07/02/16 at 14:00 Sodium Chloride 1,000 ml @ 100 mls/hr Q10H IV Last administered on 07/02/16 13:00; Admin Dose 100 MLS/HR; Start 07/02/16 at 13:00 Dopamine HCl/ Dextrose 250 ml @ 8.864 mls/ hr TITRATE IV ; Start 07/02/16 at 15 :00 Miscellaneous Information 1 ea NOTE XX ; Start 07/02/16 at 15:00 Glucose (Glutose) 15 gm Q15M PRN PO DECREASED GLUCOSE; Start 07/02/16 at 15:00 Glucose (Glutose) 22.5 gm Q15M PRN PO DECREASED GLUCOSE; Start 07/02/16 at 15: 00 Dextrose (D50w Syringe) 25 ml Q15M PRN IV DECREASED GLUCOSE; Start 07/02/16 at 15:00 Dextrose (D50w Syringe) 50 ml Q15M PRN IV DECREASED GLUCOSE; Start 07/02/16 at 15:00 Glucagon (Glucagen) 1 mg Q15M PRN IM DECREASED GLUCOSE; Start 07/02/16 at 15:00 Glucose 15 gm 15 gm Q15M PRN BUCCAL DECREASED GLUCOSE; Start 07/02/16 at 15:00 Phenylephrine HCl 250 ml @ 75 mls/hr TITRATE IV Last administered on 16:01; Admin Dose 75 MLS/HR; Start 07/02/16 at 15:00; Stop 07/02/16 at 18: 00 Phenylephrine HCl/ Dextrose (Joseph-Syneph/D5W) 500 ml @ 75 mls/hr TITRATE IV ; Start 07/02/16 at 18:00 Miscellaneous Information Famotidine/Ca Carb/Mag Hydrox (Tums D... Q8H XX ; Start 07/02/16 at 15:30 Vancomycin HCl 250 ml @ 125 mls/hr NOW IVPB ; Start 07/02/16 at 16:30; Stop at 18:29 Albumin Human (Albumin Human 25%) 100 ml @ 100 mls/hr Q8H IV ; Start 07/02/16 at 16:30; Stop 07/03/16 at 09:29 IV Flush 10 ml 10 ml PRN PRN IV IV PROTOCOL; Start 07/02/16 at 17:00 Meropenem (Merrem 500 Mg/ 100 ml (Pmx)) 100 ml @ 200 mls/hr Q12 IVPB ; Start at 18:30 BRIANNA RODRGIUEZ NP Jul 02, 2016 17:50 Start 07/02/16 at 18:00 Miscellaneous Information Famotidine/Ca Carb/Mag Hydrox (Tums D... Q8H XX ; Start 07/02/16 at 15:30 Vancomycin HCl 250 ml @ 125 mls/hr NOW IVPB ; Start 07/02/16 at 16:30; Stop at 18:29 Albumin Human (Albumin Human 25%) 100 ml @ 100 mls/hr Q8H IV ; Start 07/02/16 at 16:30; Stop 07/03/16 at 09:29 IV Flush 10 ml 10 ml PRN PRN IV IV PROTOCOL; Start 07/02/16 at 17:00 Meropenem (Merrem 500 Mg/ 100 ml (Pmx)) 100 ml @ 200 mls/hr Q12 IVPB ; Start at 18:30 BRIANNA RODRIGUEZ NP Jul 02, 2016 17:50
[2016-07-02] MEDS ORDERED: PHENYLephrine 40 MG in DEXTROSE 5% 496 ML IV SCH (18:00)
[2016-07-02] MEDS ORDERED: ALBUTEROL/IPRATROPIUM (NEB) 3 ML AMP NEB SCH (18:00)
[2016-07-02] MEDS ORDERED: TIGECYCLINE 100 MG in SOD CHLORIDE 0.9% 100 ML IVPB ONE (18:00)
[2016-07-02] MEDS ORDERED: NYSTATIN SUSP 5 ML CUP PO ONE (18:30)
[2016-07-02] MEDS ORDERED: CHLORHEXIDINE GLUCONATE 15 ML UD CUP MT ONE (18:30)
[2016-07-02] MEDS ORDERED: NYSTATIN 30 GM POWDER BTL TOP ONE (18:30)
[2016-07-02] MEDS ORDERED: MEROPENEM 500 MG/100 ML (PMX) 100 ML IVPB SCH (18:30)
[2016-07-02 18:44] LABS: AADO2 Arterial 312.6 mmHg (7.0-24.0); Allen Test ACCEPTAB; Arterial Base Excess -15.3 mmol/L (-3.0-3); Arterial COHb 0.3 % (0.0-3.0); Arterial Fraction of Oxyhgb 92.9 % (93.0-99.0); Arterial HCO3 11.5 mmol/L (22.0-26.0); Arterial MetHb 0.4 % (0.0-1.5); Arterial Total Hemglobin 8.6 g/dl (12.0-18.0); Blood Gas Low PEEP Setting 0 cmH2O; MODE VENT - AC
--- NOTE | 2016-07-02 19:54 | CONS ---
DATE OF ADMISSION: 07/02/2016 DATE OF CONSULTATION: 07/02/2016 TYPE OF CONSULTATION: Infectious Disease. REASON FOR CONSULTATION: Antibiotic management. HISTORY OF PRESENT ILLNESS: Marky Roe is a 71-year-old male who we followed at [facility], now is being transferred over to [facility] with septic shock, probably from aspiration pneumonia. PAST MEDICAL HISTORY: His past problems include: 1. 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 2. Hypertension. 3. Deep vein thrombophlebitis, status post inferior vena cava filter in 2013. 4. History of pulmonary emboli. 5. History of skin cancer. 6. History of [place] cell tumor. 7. Status post right axillary surgery with radiation. 8. Hypothyroidism. 9. Coronary artery disease. 10. Status post PCI. 11. History of adrenal insufficiency. 12. History of spinal stenosis. He presented to [facility] on 04/17/2016 with shortness of breath. He was septic with a co mmunity-acquired pneumonia, admitted to the intensive care unit. He was eventually trached and PEG' d and transferred to [facility] for continued care. He had a clinical decline in his condition and deve loped acute kidney injury. He then had an episode of emesis with apparent aspiration. The patient became hypotensive and was transferred to the intensive care unit, placed on broad spectrum antibiot ics as well as pressors. PAST MEDICAL HISTORY: Operations as outlined. He has a history of pituitary excision status post k idney transplant. FAMILY HISTORY: Noncontributory. SOCIAL HISTORY: He does not smoke, drink or abuse drugs. ALLERGIES: GENTAMICIN AND KEFLEX. MEDICATIONS: Per chart. REVIEW OF SYSTEMS: As per HPI. PHYSICAL EXAMINATION: GENERAL: The patient is a well-developed elderly-appearing male who is awake, but noncommunicative, in no acute distress. VITAL SIGNS: Stable. Blood pressure 100/70 as noted and his temperature 98.6. SKIN: Without generalized rash. HEENT: Within normal limits. NECK: Supple. LYMPH NODES: None palpable. CHEST: Decreased breath sounds at the bases with occasional rhonchi. HEART: Without murmur or gallop. Tachycardic. ABDOMEN: He has a trach. He has a G-tube. His abdomen soft and nontender. EXTREMITIES: Without cyanosis or clubbing. Positive for lymphedema of the right upper extremity. He has some hyperpigmentation in lower extremities. RECTAL AND GENITAL: Deferred. NEUROLOGIC: The patient is obtunded on a respirator. IMPRESSION AND PLAN: The patient comes in with a white count of 3.2, BUN and creatinine 23/2.39. C hest x-ray shows right lower lobe atelectasis, left lower lobe infiltrate with possible pneumonia. My assessment is that the patient comes in with septic shock, probably from aspiration pneumonia. Valdez Gutierrez ordered blood cultures, urine cultures, procalcitonin. The patient is on meropenem, Leva demar and vancomycin. He is also on dopamine and others. We will continue him on this regimen. A P ICC line has been placed as well today. We will await his cultures. I will dictate my findings to Dr. Gutierrez and Dr. Perez. Dictated By: JOVANNI ANDRADE MD, JD/ANGELA Conf#: [id number] DID#: [id number]
--- NOTE | 2016-07-02 20:17 | RADRPT ---
PROCEDURE: CT Chest, Abdomen and Pelvis without contrast. CLINICAL INDICATION: Abdominal distension. Elevated lactic acid. Shortness of breath. TECHNIQUE: CT scan of the chest, abdomen, and pelvis without contrast was performed on a multi-det adán high-resolution CT scanner. The patient was scanned following the uncomplicated intravenous administration of 100 cc of Omnipaque 300 intravenous contrast. Coronal and sagittal reformatted i mages were obtained from the axial source images. Images were reviewed on a high-resolution PACS wor kstation. The total exam CTDI equals 18.28 mGy and the total exam DLP equals 827.72 mGy-cm. One or more of the following dose reduction techniques were used: Automated exposure control. Adjustment of the mA and/or kV according to patient size. Use of iterative reconstruction technique. COMPARISON: None available FINDINGS: CT chest: Tracheostomy is in place. Left PICC line remains in satisfactory position. There is near complete collapse of the left lower lobe. There is partial atelectasis of the right lower lobe. Patchy inte rstitial infiltrates/linear pleuroparenchymal scarring are seen in the upper lungs. There is locula marlene gas collection in the right inferior hemithorax. The mediastinum is unremarkable without evidence for mass or lymphadenopathy. The vascular structur es of the mediastinum are normal in course and caliber. Aortic vascular calcifications and coronary artery calcifications are present. The heart size is mildly enlarged without evidence for pericardi al thickening or effusion. The axillary regions, subpectoral regions, and supraclavicular regions ar e all unremarkable. CT abdomen: There is extensive intramural gas in the stomach. Gastrostomy tube is in place. Extensive intramur al gas is seen in multiple loops of small bowel. There is pneumoperitoneum suggesting viscus perfor ation. There is gas in the os MVA, portal vein and intrahepatic portal venules. The liver is normal in size and density without focal mass. The spleen is normal in size and homoge neous in density. The pancreas as visualized is normal. The gallbladder is remarkable for multipl e calcified gallstones. There is no evidence for biliary dilatation. The adrenal glands are symmetr ic and normal. There is severely atrophic bilateral kidneys. IVC filter is in place. There is a lef t iliac fossa transplant kidney with no hydronephrosis. The aorta is of normal caliber. Aortic vascular calcifications are present. There is no retroperit carvajal lymphadenopathy. The nory hepatis region is clear. The bowel and mesentery, as visualized, are equally unremarkable. CT pelvis: The small bowel loops situated within the pelvis are unremarkable. The pelvic organs are normal. T he pelvic sidewalls and inguinal regions are clear. The sigmoid colon and rectum are all unremarkab le. No mass, lymphadenopathy, or free fluid is seen. No acute inflammation is seen. There are post surgical changes of posterior decompression and fusion at L3-L5. The surrounding osseous structures are remarkable for degenerative spondylosis of the spine. No os teolytic or osteoblastic lesion is detected. A call report was made to Dr. Jarrett at 07/02/2016 8:07:01 PM following completion of the examination. IMPRESSION: 1. Extensive intramural gas in the multiple loops of proximal small bowel and the stomach and portal venous gas in keeping with ischemic bowel. 2. Pneumoperitoneum suggesting viscus perforation. The source of the perforation is not clear but suspect small bowel perforation. 3. Gastrostomy tube is in satisfactory position. 4. Cholelithiasis. 5. Near total collapse of the left lower lobe. 6. Partial atelectasis of the right lower lobe. 7. Patchy interstitial infiltrates and linear scarring in the upper lungs. 8. Small collection of air in the inferior right hemithorax. 9. Cardiomegaly. 10. Aortic and coronary artery calcifications. 11. Severely atrophic bilateral kidneys. Normal size transplant kidney with no hydronephrosis in the left iliac fossa. RPTAT: QQ .Martin Riley MD, MD Date Time Electronically viewed and signed by .Martin Riley MD, on 07/02/2016 20:16 .O/
--- NOTE | 2016-07-02 20:57 | EN ---
Date/Time of Note Date/Time of Note DATE: 07/02/16 TIME: 20:54 ER Progress Note I was notified by radiology that the patient has CT evidence of mesenteric ischemia with microperforation. I was able to speak to general surgeon on-call Manoj Gonzalez. We reviewed the case as well as the patient's comorbidities and critical nature. He states that the patient is not a surgical candidate. He would suggest goals of care discussion. I was able speak to the patient's managing physician Dr. Mckeon radio electronics technician for Dr. Gutierrez. I notified him of the CT findings. I reached out to the patient's family members. It appears that the patient does not want chest compressions but once a "chemical". I discussed the goals of care with the patient's sister. I explained the likely futile nature of increasing pressors in this patient with multisystem organ dysfunction, increasing lactic acid. The patient is most likely going to within the next 24 hours. I offered consideration for hospice care, withdrawal of care and the patient's sister seems that the family would be interested in this to ease the patient's suffering. They need to discuss this is a family and will come up with a plan. At this time the patient's sister does not want further escalation of care. They certainly do not want surgery and no chest compressions at this time. They understand the critical nature of the patient' s situation currently. The patient is boarding in the emergency room at this time. NEREYDA TEJEDA MD Jul 02, 2016 20:57
[2016-07-02] MEDS ORDERED: traZODone 50 MG TAB GTB SCH (21:00)
[2016-07-02] MEDS ORDERED: TOLTERODINE 2 MG TAB GTB SCH (21:00)
[2016-07-02] MEDS ORDERED: MEROPENEM 1 GM/100 ML (PMX) 100 ML IVPB SCH (21:00)
[2016-07-02] MEDS ORDERED: MAGNESIUM HYDROXIDE 30ML CUP PO SCH (21:00)
[2016-07-02] MEDS ORDERED: ASCORBIC ACID 500 MG TAB GTB SCH (21:00)
[2016-07-02] MEDS ORDERED: FISH OIL 1,000 MG CAP PO SCH (21:00)
--- NOTE | 2016-07-02 21:12 | CONS ---
DATE OF ADMISSION: 07/02/2016 DATE OF CONSULTATION: TYPE OF CONSULTATION: Gastroenterology. Dr. Nathen Gutierrez, Thank you for your referral. A 71-year-old male with history of end-stage renal disease on dialysis , status post renal transplant in 1984 secondary to Alport syndrome; history of hypertension; histor y of IVC for DVT in 2013; history of PE; history of skin cancer, Opal cell tumor involving the lym ph node and right axilla resulting in lymphedema of the right arm; coronary artery disease; adrenal insufficiency; history of spinal stenosis who was admitted to [facility] for shortness of breath. The p atient was on [facility] ____ the vent. The patient has got tracheostomy. His G-tube had come out 2 da ys ago, radiologist couldn't put it, so the new G-tube was placed endoscopically. The patient was t olerating feeding. There was no residual. However, this morning when he started coughing, the heidi ent aspirated the formula, and his blood pressure dropped down so was sent to the emergency room for evaluation and possible admission to intensive care unit. However, the patient is in the ER becaus e the ICU is full. There was no history of high residual. Residual was normal, and he was tolerati ng the feeding. PAST MEDICAL HISTORY: As described. PAST SURGICAL HISTORY: Lumbar laminectomy, pituitary excision. SOCIAL HISTORY: Does not smoke or drink. FAMILY HISTORY: Nothing contributory. ALLERGIES: 1. KEFLEX. 2. GENTAMICIN. REVIEW OF SYSTEMS: Unable to do it because patient does not respond to verbal command. PHYSICAL EXAMINATION: VITAL SIGNS: The blood pressure in the ER now was 75. He has been started on a dopamine drip, and now he will be transferred to intensive care unit. CARDIOVASCULAR: No murmur. LUNGS: The patient is on vent. ABDOMEN: Soft. G-tube is in place. EXTREMITIES: All edematous. There is some mottling of the extremities and lower abdomen most proba gerri related to sepsis. LABORATORY DATA: WBC of 3.2, hematocrit of 26, platelet count is not recorded. Lactic acid level w as 8.7, creatinine was 2.7, alkaline phosphatase 155. IMAGING: The chest x-ray reveals infiltration which is new. IMPRESSION: 1. Septic shock, most probably due to the pneumonia secondary to aspiration. 2. Status post percutaneous endoscopic gastrostomy 2 days ago. 3. Oliguric acute kidney injury. 4. Lactic acidosis. 5. Ventilator-dependent respiratory failure. 6. Anemia. 7. Right upper extremity edema secondary to lymph node removal. 8. Encephalopathy which appears to be toxic. The patient was communicating until yesterday. 9. Atrial fibrillation. 10. Adrenal insufficiency. He is on steroid now. 11. Diabetes mellitus. 12. Decubitus wound. 13. [place] cell tumor. 14. Status post IVC. PLAN: Continue IV antibiotic. Will hold off on feeding. Continue steroid and continue all the sup portive care and will resume feeding slowly, and patient be placed on low-dose Reglan once we start feeding him. Dictated By: JARRELL KELLY/ANGELA Conf#: [id number] DID#: [id number]
[2016-07-02] MEDS ORDERED: morphine 4 MG/ML VIAL IV STA (21:56)
[2016-07-02 22:00] VITALS: TEMP 93.4
[2016-07-02] MEDS ORDERED: ONDANSETRON 4 MG INJ IV STA (23:38)
[2016-07-02] MEDS ORDERED: HYDROmorphONE 1 MG/ML SYG IV STA (23:38)
[2016-07-02 23:45] VITALS: BP 69/44; RESP 21
[2016-07-02 23:51] VITALS: PULSE 30
[2016-07-03] MEDS ORDERED: LORAZEPAM 2 MG INJ IV ONE
--- NOTE | 2016-07-03 00:02 | CONS ---
DATE OF ADMISSION: 07/02/2016 DATE OF CONSULTATION: 07/02/2016 TYPE OF CONSULTATION: Surgical. REFERRING PHYSICIAN: Dallin Jarrett MD CHIEF COMPLAINT: 1. Septic shock, on [address] diagnosis of extensive intramural gas in multiple loops of proximal small bowel and stomach a nd portal venous gas with ischemic bowel. 3. Pneumoperitoneum suggestive of perforation. 4. Cardiomegaly. 5. Patchy infiltrates. 6. BMI 36. 7. Pulmonary embolus history. 8. Coronary artery disease. 9. Adrenal insufficiency. HISTORY OF PRESENT ILLNESS: Marky Roe is a 71-year-old male with significant comorbidities who is a resident of [place]. After being found to have pneumonia and sepsis at [facility], then he w as taken to [facility] in April. He had been trached and PEG'd and eventually trans ferred to [place]. He had multiple complications and this morning apparently had an episode of emesi s and possible aspiration, became hypotensive and unresponsive. He was transferred to ER as an ICU patient and placed on antibiotics. He has been on three maxed pressors with aggressive IV hydration with low blood pressures at this point. The patient has significant lactic acidosis with leukopeni a and bandemia. He has abnormal LFTs. The patient had a CT scan of the abdomen and pelvis and ches t identifying extensive intramural gas and multiple loops of proximal small bowel and stomach and po rtal venous gas, ischemic bowel with perforation and pneumoperitoneum. Surgical consult is obtained for further evaluation and treatment. PAST MEDICAL HISTORY: 1. Septic shock. 2. Ischemic bowel. 3. Perforated viscus with ____, acute. 4. Cholelithiasis. 5. Patchy interstitial infiltrates. 6. Cardiomegaly. 7. Aortic and coronary artery calcifications. 8. Severely atrophic bilateral kidneys with renal failure. 9. BMI 36 with obesity. 10. Lactic acidosis, acute. 11. Abnormal LFTs. 12. Renal failure. 13. Leukopenia. 14. Anemia. 15. Bandemia. 16. Coagulopathy. 17. UTI. 18. Hypertension. 19. Coronary artery disease. 20. AFib history. 21. Respiratory failure with vent and trach dependence. 22. Diabetes mellitus. 23. DVT history. 24. PE history. 25. Candiduria. 26. Sputum pseudomonas. 27. Bilateral upper extremity DVTs. 28. Metabolic acidosis. 29. Dysphagia. 30. Lymphedema, right upper extremity. 31. Dermatitis. 32. Encephalopathy. 33. Adrenal insufficiency. 34. Decubitus ulceration. 35. Left lower extremity wound. 36. History of Opal cell tumor. 37. Hypothyroidism. 38. Alport syndrome. PAST SURGICAL HISTORY: 1. PCI to right RCA. 2. Trach. 3. PEG. 4. Lumbar laminectomy. 5. Pituitary excision. 6. Left donor kidney transplant. 7. Opal cell tumor excision. 8. IVC filter. MEDICATIONS: As per MAR. ALLERGIES: 1. GENTAMICIN. 2. KEFLEX. FAMILY HISTORY: Noncontributory. SOCIAL HISTORY: No current alcohol, drugs or tobacco. REVIEW OF SYSTEMS: A 12-point review of systems of the chart is negative unless addressed in HPI. PHYSICAL EXAMINATION: VITAL SIGNS: Temperature is ____, pulse 82, blood pressure 93/44 on 3 maxed pressors, satting 97% o n trach collar. GENERAL: Obese, noncommunicative. HEENT: Pupils are sluggish. No scleral icterus. Mucous membranes are moist. NECK: Trach in place. PULMONARY: Diminished breath sounds. No wheezing. CARDIAC: S1, S2 present. ABDOMEN: Soft. PEG in place. Mottled skin. EXTREMITIES: Mottled skin. Minimal edema. VASCULAR: Capillary refill is over 3 seconds. NEUROLOGIC: Does not follow commands. LYMPHATICS: No inguinal or cervical lymphadenopathy. SKIN: No rashes, no jaundice but with mottling. Left lower extremity wound. Sacral decubitus ulce r. LABORATORY AND RADIOGRAPHIC: As per chart and the history. ASSESSMENT AND PLAN: 1. Septic shock secondary to ischemic bowel and perforated viscus. However, patient is very sick a nd unstable for surgical intervention. After discussion with team members, patient is deemed too un stable to continue aggressive surgical care that is at best heroic. The patient has been made CHEMI RANDY CODE, and there is discussion with family to proceed with possible comfort care. 2. Morbid obesity with body mass index of 36. No nutrition at this time. 3. Hypertension, however currently significantly hypotensive on 3 maximized pressors. 4. Diabetes, on medication. 5. Adrenal insufficiency, on steroid therapy. 6. Urinary tract infection and funguria, on antibiotics and antifungal. 7. Anemia without evidence of acute blood loss. 8. Leukopenia and bandemia secondary to above. 9. Coagulopathy. 10. Coronary artery disease and history of atrial fibrillation. Continue cardiac optimization. 11. End-stage renal disease, status post transplanted kidney. 12. History of deep venous thrombosis and pulmonary embolism and inferior vena cava filter. Thank you very much for consulting me in this patient's case. Dictated By: LINDA BILLY/ANGELA Conf#: [id number] DID#: [id number]
--- NOTE | 2016-07-03 02:23 | EN ---
Date/Time of Note Date/Time of Note DATE: 07/03/16 TIME: 02:22 ER Progress Note This patient was on basically comfort care as the family who is at bedside decided they did not want any further interventions. They withdrew vasodepressors and did not want any CPR performed. Patient was very ill and became more bradycardic. The nurse can no longer feel pulses in one to the room and confirmed patient had no pulses. EKG was performed to make sure there was no cardiac electrical activity. Time of was 2354. EKG interpretation: Asystole all leads SCAR KINSEY DO Jul 03, 2016 02:23
[2016-07-03] MEDS ORDERED: ATORVASTATIN 40 MG TAB GTB SCH (09:00)
[2016-07-03] MEDS ORDERED: CHOLECALCIFEROL 1,000 UNIT TAB GTB SCH (09:00)
[2016-07-03] MEDS ORDERED: ASPIRIN 81 MG TAB GTB SCH (09:00)
[2016-07-03] MEDS ORDERED: INSULIN GLARGINE [LANtus] 3 ML PEN SC SCH (09:00)
[2016-07-03] MEDS ORDERED: TIGECYCLINE 50 MG in SOD CHLORIDE 0.9% 100 ML IVPB SCH (09:00)
[2016-07-03] MEDS ORDERED: TAMSULOSIN (SR) 0.4 MG CAP PO SCH (09:00)
[2016-07-03] MEDS ORDERED: AMIODARONE 200 MG TAB GTB SCH (09:00)
[2016-07-03] MEDS ORDERED: SOD CHLORIDE 0.9% 100 ML ONE (17:49)
[2016-07-04] MEDS ORDERED: LEVOFLOXACIN 750MG/D5W (PMX) 150 ML IVPB SCH (09:00)
[2016-07-04 15:08] LABS: MICROALBUMIN 58.4 mg/dL
== END 2016-07-03 00:33 | disposition expired ==
LOC: E/R 08:05
DX: A41.9 Sepsis, unspecified organism (principal); R65.21 Severe sepsis with septic shock; J69.0 Pneumonitis due to inhalation of food and vomit; I12.0 Hypertensive chronic kidney disease with stage 5 chronic kidney disease or end stage renal disease; N18.6 End stage renal disease; E11.9 Type 2 diabetes mellitus without complications; I25.10 Atherosclerotic heart disease of native coronary artery without angina pectoris; R11.10 Vomiting, unspecified; Z94.0 Kidney transplant status; Z79.82 Long term (current) use of aspirin; Z79.4 Long term (current) use of insulin
CPT/HCPCS: 36569; 36600; 71010; 71250; 74176; 80053; 81001; 81003; 82043; 82803; 83605; 84155; 84300; 84484; 85025; 85610; 85730; 87040; 87070; 89220; 93005; 94002; 96365; 96368; 96375; 96376; 99291; C1769; J1170; J1265; J1720; J1956; J2060; J2270; J2370; J2405; J3243; J3370; J7030; J7060; 87086; J2185; P9047